=== PATIENT | female | born 1950 | race Caucasian/White ===

== ENCOUNTER → 2025-09-04 06:49 | Outpatient (REF) | payer OTHER, SELFPAY ==
[2025-09-04 07:45] VITALS: BP 147/82; BP_SYST 86
== END ==
LOC: RADI 06:49
PROVIDERS: ATTENDING PHYSICIAN Internal Medicine Gastroenterology; FAMILY PHYSICIAN Family Medicine
DX: R14.0 Abdominal distension (gaseous) (principal); Z53.8 Procedure and treatment not carried out for other reasons
CPT/HCPCS: 76705